=== PATIENT | male | born 1965 | race Caucasian/White ===

== ENCOUNTER 2018-01-22 09:15 | Observation (INO) | payer BC ==
[2018-01-22 09:51] LABS: ABS Basophils 0.1 10^3/ul (0-0.2); ABS Eosinophils 0.2 10^3/ul (0-0.6); ABS Lymphocytes 3.4 10^3/ul (1.0-4.8); ABS Monocytes 1.1 10^3/ul (0-0.8); ABS Neutrophils 8.5 10^3/ul (1.5-7.7); ABS Nucleated RBC 0 10^3/ul; Eosinophil % 1.4 % (0-6); Hematocrit 51 % (42-52); Hemoglobin 17.7 g/dl (14.0-18.0); Lymphocyte % 25.6 % (25-47); Mean Corpuscular HGB Conc 35 g/dl (31-36); Mean Corpuscular Hemoglobin 32 pg (27-31); Mean Corpuscular Volume 93 fL (80-94); Mean Platelet Volume 7.8 um3 (7.4-10.4); Nucleated Red Blood Cells % 0.1; Platelet Count 279 10^3/ul (150-450); Red Blood Count 5.47 10^6/ul (4.0-5.4); Red Cell Distribution Width 13 % (10.5-15); White Blood Count 13.3 10^3/ul (3.5-10.8)
--- NOTE | 2018-01-22 09:59 | RAD ---
HISTORY: Chest pain COMPARISONS: February 07, 2015 VIEWS: 1: frontal portable view of the chest at 9:45 AM. The left costophrenic angle is cut off. FINDINGS: LINES AND TUBES: None. CARDIOMEDIASTINAL SILHOUETTE: The cardiomediastinal silhouette is normal for portable technique. PLEURA: The left costophrenic angle is cut off. The right costophrenic angle is sharp. LUNG PARENCHYMA: The lungs are clear. ABDOMEN: The upper abdomen is clear. There is no subphrenic gas. BONES AND SOFT TISSUES: No bone or soft tissue abnormalities are noted. IMPRESSION: LIMITED STUDY. NO ACTIVE CARDIOPULMONARY DISEASE.
[2018-01-22] MEDS ORDERED: Aspirin 81 mg CHEW TAB* 81 MG TAB.CHEW PO ONE (10:01)
[2018-01-22 10:09] LABS: EGFR Non-African American 73.2 (>60)
[2018-01-22] MEDS ORDERED: LORazepam TAB(*) 1 MG PO SCH (12:00)
[2018-01-22] MEDS ORDERED: Omeprazole CAP* 20 MG PO PRN (12:23)
[2018-01-22] MEDS ORDERED: Mouth Piece, Nicotine* 1 EACH CARTRIDGE INH PRN (12:24)
[2018-01-22] MEDS ORDERED: Nicotine Inhaler* 10 MG AMP INH PRN (12:24)
[2018-01-22] MEDS ORDERED: Heparin VIAL(*) 5000 UNITS/ML VIAL (FIVE THOUSAND) SUBCUT SCH (14:00)
[2018-01-22] MEDS ORDERED: Atorvastatin* 20 MG TAB PO SCH (17:00)
--- NOTE | 2018-01-22 18:57 | ED ---
Yunior Avelar Jennifer scribed for Meek Hunter MD on 01/22/18 at 0949 . HPI Chest Pain - HPI Summary HPI Summary: The patient is a 52 year old male who presents with severe heart burn and chest pain since 0130 this morning. He states that the pain was located mid-sternal but denies radiation. The patient broke out in a cold sweat after the sudden onset chest pain and has been nauseous since. The patient denies taking Aspirin but took his Lisinopril this morning. He reports the chest discomfort lasted about 10 minutes and he feels much better in the ED now. - History of Current Complaint Chief Complaint: EDChestPainROMI Time Seen by Provider: 01/22/18 09:31 Hx Obtained From: Patient Onset/Duration: Started Hours Ago, Resolved - Better Timing: Lasting Minutes - 10 minutes Initial Severity: Moderate Current Severity: Mild Pain Intensity: 1 Pain Scale Used: 0-10 Numeric Chest Pain Location: Mid Sternal Chest Pain Radiates: No Character: Burning, Pressure/Squeezing Aggravating Factor(s): Nothing Alleviating Factor(s): Nothing Associated Signs and Symptoms: Positive: Other: - chest pain, nausea - Allergy/Home Medications Allergies/Adverse Reactions: Allergies Allergy/AdvReac Type Severity Reaction Status Date / Time No Known Allergies Allergy Verified 01/22/18 09:17 Home Medications: Home Medications Atorvastatin* [Lipitor*] 20 mg PO DAILY 01/22/18 [History Confirmed 01/22/18] Hydrochlorothiazide TAB* [Hydrodiuril TAB*] 25 mg PO DAILY 01/22/18 [History Confirmed 01/22/18] Lisinopril TAB* [Prinivil TAB*] 40 mg PO DAILY 01/22/18 [History Confirmed 01/22] PMH/Surg Hx/FS Hx/Imm Hx Endocrine/Hematology History: Denies: Hx Diabetes Cardiovascular History: Reports: Hx Hypertension Psychiatric History: Reports: Hx Anxiety Infectious Disease History: No Infectious Disease History: Denies: Traveled Outside the [place] in Last 30 Days - Family History Known Family History: Positive: Hypertension Negative: Cardiac Disease - Social History Alcohol Use: Daily Substance Use Type: Reports: None Smoking Status (MU): Heavy Every Day Tobacco Smoker Review of Systems Negative: Fever, Chills Negative: Erythema Negative: Sore Throat Positive: Chest Pain Negative: Shortness Of Breath, Cough Positive: Nausea. Negative: Abdominal Pain, Vomiting Negative: dysuria, flank pain Negative: Myalgia, Edema Negative: Rash Neurological: Negative - Dizziness All Other Systems Reviewed And Are Negative: Yes Physical Exam - Summary Physical Exam Summary: Constitutional: Well-developed, Well-nourished, Alert. (-) Distressed Skin: Warm, Dry HENT: Normocephalic; Atraumatic Eyes: Conjunctiva normal Neck: Musculoskeletal ROM normal neck. (-) JVD, (-) Stridor, (-) Tracheal deviation Cardio: Rhythm regular, rate normal, Heart sounds normal; Intact distal pulses; The pedal pulses are 2+ and symmetric. Radial pulses are 2+ and symmetric. (-) Murmur Pulmonary/Chest wall: Effort normal. (-) Respiratory distress, (-) Wheezes, (-) Rales Abd: Soft, (-) Tenderness, (-) Distension, (-) Guarding, (-) Rebound Musculoskeletal: (-) Edema Lymph: (-) Cervical adenopathy Neuro: Alert, Oriented x3 Psych: Mood and affect Normal Triage Information Reviewed: Yes Vital Signs On Initial Exam: Initial Vitals Temp Pulse Resp BP Pulse Ox 98.1 F 105 16 145/101 97 01/22/18 09:18 01/22/18 09:18 01/22/18 09:18 01/22/18 09:18 01/22/18 09:18 Vital Signs Reviewed: Yes Diagnostics - Vital Signs Vital Signs Temp Pulse Resp BP Pulse Ox 01/22/18 09:45 97 01/22/18 09:30 99 19 97 01/22/18 09:18 98.1 F 105 16 145/101 97 - Laboratory Result Diagrams: 01/22/18 09:42 01/22/18 09:43 Lab Statement: Any lab studies that have been ordered have been reviewed, and results considered in the medical decision making process. - Radiology CXR Xray Interpretation: No Acute Changes - LIMITED STUDY. NO ACTIVE CARDIOPULMONARY DISEASE. Dr. Hunter has reviewed this report. Radiology Interpretation Completed By: Radiologist - EKG 0930 Cardiac Rate: NL EKG Rhythm: Sinus Rhythm - 92 BPM EKG Interpretation: no STEMI Chest Pain Course/Dx - Course Course Of Treatment: The patient is a 52 year old male who presents with severe heart burn, chest pain, and sweats since 0130 this morning. The patient is a smoker and has history of hypertension. In the ED course the patient was given 324mg Aspirin. Bloodwork obtained. CXR, EKG obtained. The patient is diagnosed with unspecified chest pain and hypertension. The patient was admitted to [facility] by Dr. Hernandez. - Diagnoses Provider Diagnoses: Nonspecific chest pain, Hypertension - Provider Notifications Discussed Care Of Patient With: Iam Hernandez Time Discussed With Above Provider: 11:10 Instructed by Provider To: Admit As Inpatient Discharge - Sign-Out/Discharge Documenting (check all that apply): Discharge/Admit/Transfer - Discharge Plan Condition: Good Disposition: ADMITTED TO [facility] Referrals: Nickolas Warner MD [Primary Care Provider] - The documentation as recorded by the Yunior conrad Jennifer accurately reflects the service I personally performed and the decisions made by , Meek Hunter MD.
[2018-01-22 19:23] VITALS: BP 155/95
--- NOTE | 2018-01-22 21:02 | HP ---
CC: Nickolas Warner MD * HISTORY AND PHYSICAL: DATE OF ADMISSION: 01/22/18 PRIMARY CARE PROVIDER: Nickolas Warner MD ATTENDING PHYSICIAN: Iam Hernandez MD * (dictated by Ema Ruelas NP) CHIEF COMPLAINT: Chest pain. HISTORY OF PRESENT ILLNESS: Mr. Gann is a 52-year-old male with a past medical history significant for hypertension, hyperlipidemia, and alcohol abuse who states he had been in his usual state of health when, at approximately 1:30 this morning, he developed a sternal chest discomfort that lasted for 10 minutes. He took a Nexium as he thought that it was secondary to indigestion. He states after the chest discomfort, he had 20 minutes of dizziness and sweating. He states that he had hot dogs and six 16-ounce beers last evening, so he contributed his symptoms to what he had late for dinner last night. The patient denies any recent fevers, chills, cough, shortness of breath, nausea, vomiting, diarrhea, urinary symptoms. The patient states he urinates a lot due to being on hydrochlorothiazide. He states that he recently saw his primary care provider this week who increased his antihypertensives and started him on atorvastatin after receiving labs showing he had hyperlipidemia. Due to the patient's symptoms, he presented to the emergency room for further evaluation of his symptoms. While in the emergency room, the patient received aspirin. He had initial troponin of 0.01. He remained chest pain free. The D-dimer was less than 200. His other labs were fairly unremarkable with the exception of a mildly elevated white blood cell count at 13.3. The patient states that he has had some recent sinus symptoms and left ear discomfort that are improving and his primary care provider evaluated him 3 days ago and felt that he did not need any antibiotics. The hospitalists were asked to evaluate the patient for admission. PAST MEDICAL HISTORY: 1. Hypertension. 2. Hyperlipidemia. 3. Alcohol abuse and tobacco abuse. PAST SURGICAL HISTORY: Status post tonsillectomy and adenoidectomy. HOME MEDICATIONS: Include: 1. Lisinopril 40 mg oral daily. 2. Hydrochlorothiazide 25 mg oral daily. 3. Atorvastatin 20 mg oral daily. 4. Nexium 20 mg oral daily as needed for indigestion. ALLERGIES: No known drug allergies. FAMILY HISTORY: The patient has a half brother with a history of MT. His mother has a history of diabetes mellitus. He had a maternal grandmother with a history of uterine cancer and his father with a history of lung cancer. SOCIAL HISTORY: This patient smokes 0.5 to 1 pack per day. He has a 26-year smoking history. The patient drinks 3 to 8 16-ounce beers daily. Prior to last night, he had gone 6 days without drinking. He denies recreational drugs. His significant other, Gloria Leblanc, will be his surrogate decision maker in the event he is unable to make decisions for himself. REVIEW OF SYSTEMS: I performed an 11-point review of systems. All the pertinent positives and negatives are mentioned in the history of present illness. The remaining review of systems is negative. PHYSICAL EXAMINATION GENERAL APPEARANCE: The patient is alert, pleasant, appears to be in no acute distress. VITAL SIGNS: Temperature 98.1, heart rate 99, respiratory rate 19, O2 sat 97% on room air, blood pressure 145/101. HEENT: Normocephalic, atraumatic. Pupils are equal and reactive to light. Extraocular movements are intact. RESPIRATORY: There is no accessory muscle use. The lungs are clear to auscultation, bilateral. ABDOMEN: Soft, nontender, nondistended. There are bowel sounds present x4. EXTREMITIES: There is no lower extremity edema. DP and PT pulses are 2+ and symmetric. MUSCULOSKELETAL: There is no clubbing or cyanosis noted. The patient exhibits good strength in all extremities. NEUROLOGICAL: The patient is alert and oriented x4. Cranial nerves II through XII are grossly intact. PSYCHOLOGICAL: The patient is calm and cooperative. SKIN: There are no rashes or abnormalities seen. DIAGNOSTIC STUDIES/LABORATORY DATA: Sodium 136, potassium 4.5, chloride 102, CO2 of 26, BUN 15, creatinine 1.07, glucose 151. White blood cell count 13.3, hemoglobin 17.7, hematocrit 51, platelet count 279,000. D-dimer is less than 200. Troponin 0.01. EKG shows a sinus rhythm, rate of 92 and right bundle-branch block. This EKG is similar to previous EKG from 02/07/15. At that time, it was an incomplete right bundle-branch block. He has no acute signs of ischemia at this time. Chest x-ray from today. Radiologist's impression: Limited study. No active cardiopulmonary disease. IMPRESSION: Mr. Gann is a 52-year-old male with past medical history significant for hypertension, hyperlipidemia, and tobacco and alcohol abuse who presents to the emergency room with complaints of chest pain overnight that has since resolved. He will be admitted as an observation for rule out acute coronary syndrome. ASSESSMENT/PLAN: 1. Chest pain. The patient will be admitted to rule out acute coronary syndrome. We will trend his troponins. He will get 2 more troponins every 3 hours. He is unable to get a stress test today as he will not have his repeat troponin within 4 to 6 hours. The plan will be if his troponins rule out that he will have an outpatient stress test early next week. The patient will need to have a nuclear stress test due to his risk factors. He has a HEBERT score of 1. On 01/19/18, he had fasting lipids showing a cholesterol of 226 and LDL of 154. At that time, he was started on atorvastatin by his primary care provider. 2. Leukocytosis. The patient had mild leukocytosis on 01/19/18, slightly elevated now. Suspect this could be secondary to a sinusitis. I do not feel he needs antibiotics at this time. Continue supportive care. 3. Hypertension. The patient was initially hypertensive in the emergency room. This is improved during his stay. He is now normotensive. He reports recently having his lisinopril dosing increased. 4. Hyperlipidemia. The patient had fasting lipids as discussed above 3 days ago, so he will be continued on his atorvastatin. 5. Tobacco abuse. The patient will be provided with nicotine replacement as needed. 6. Alcohol abuse. The patient will be placed on a WAM protocol. He has no signs of alcohol withdrawal at this time. 7. Fluids, electrolytes, and nutrition. The patient will be on a heart healthy diet. 8. Code status. Full code. 9. DVT prophylaxis. The patient is at moderate risk and will have subcu heparin. 10. Disposition. Observation. TIME SPENT: Time for this admission was approximately 60 minutes, greater than half of that was spent with the patient and his significant other discussing medications, past medical history, the events leading up to his arrival today, performing a physical examination, and discussing the plan of care. This case has been reviewed with the attending, Dr. Hernandez, who agrees with the plan of care. Reviewed by TORITO ROJAS-C 01/23/18 1430 [id number]/[facility] #: [id number] REBEKAH
--- NOTE | 2018-01-23 06:50 | DS ---
CC: Dr. Nickolas Warner * DISCHARGE SUMMARY: DATE OF ADMISSION: 01/22/18 DATE OF DISCHARGE: 01/22/18 ATTENDING PHYSICIAN: Dr. Iam Hernandez * (dictated by Ema Ruelas NP) . PRIMARY DIAGNOSIS: Chest pain, suspect secondary to indigestion. SECONDARY DIAGNOSES: 1. Hypertension. 2. Hyperlipidemia. 3. Tobacco abuse. 4. Alcohol abuse. STUDIES WHILE IN THE HOSPITAL: 1. Chest x-ray from today. Radiologist's impression: Limited study. No active cardiopulmonary disease. DISCHARGE MEDICATIONS: New home medications: 1. Folic acid 1 tablet oral daily. 2. Multivitamin 1 tablet oral daily. 3. Thiamine 100 mg oral daily. Continued home medications: 1. Lisinopril 40 mg oral daily. 2. Hydrochlorothiazide 25 mg oral daily. 3. Atorvastatin 20 mg oral daily. 4. Nexium 20 mg oral daily as needed for indigestion. HISTORY OF PRESENT ILLNESS/HOSPITAL COURSE: Mr. Gann is a 52-year-old male with a past medical history significant for hypertension, hyperlipidemia, tobacco, and alcohol abuse, who has been in his usual state of health when approximately at 1:30 this morning, he developed sternal chest discomfort that lasted for 10 minutes. He took a Nexium as he thought the pain was secondary to his indigestion. Afterwards, the pain resolved, but he continued to have dizziness and sweating for approximately 20 minutes. He reports having hot dogs and 6 sixteen-ounce beers last evening prior to going to bed and feels this was contributing to his indigestion. He denied any fevers, chills, shortness of breath, nausea, vomiting, diarrhea, or urinary symptoms. He reports recently being started on atorvastatin for hyperlipidemia by his PCP. Due to his symptoms, he presented to the emergency room. While in the emergency room, he received an aspirin, had an initial troponin of 0.01. He remained chest pain free. He had a D-dimer of less than 200. He had a mild leukocytosis of 13.1, suspected to be secondary to possible sinusitis, so he did not need any antibiotics at that time. Hospitalists were asked to evaluate the patient for admission. While in the hospital, the patient remained chest pain free. He had his troponins trended, that were 0.01 and 0.00. He was monitored on telemetry with no findings. Mr. Gann is stable for discharge to home today. Vital signs are as follows: Temperature 98.6, heart rate 95, respiratory rate 16, O2 sat 99%, blood pressure 155/96. DISCHARGE PLAN: Mr. Gann will be discharged to home. ACTIVITY: As tolerated. DIET: He should be on a heart-healthy diet. As far as his chest pain, I suspect his chest pain overnight was secondary to indigestion, but he has risk factors of hypertension, tobacco abuse, hyperlipidemia for CAD. I feel that the patient should undergo an outpatient stress test next week. [facility] will call the patient and set him up for an outpatient stress test next week. The patient has been resumed on his usual home medications. I recommended that he take thiamine, folic acid, and multivitamin due to his alcohol abuse. He has been encouraged to stop smoking and drinking alcohol. He has been asked to return to the emergency room for any chest pain, shortness of breath. He has a followup appointment with Dr. Warner, his primary care provider, on 01/29/18, at 10:20 a.m. This is a summarized report of a complex medical history and hospital stay. For further details, please see the entire medical record. TIME SPENT: Time for this discharge was approximately 50 minutes, greater than half of that was spent with the patient and significant other discussing medications and discharge plans and instructions. CONDITION ON DISCHARGE: Stable. Reviewed by DUKE ROJAS 01/23/18 1432 [id number]/[facility] #: [id number] REBEKAH
[2018-01-23] MEDS ORDERED: Folic Acid TAB* 1 MG PO SCH (09:00)
[2018-01-23] MEDS ORDERED: Multivitamins/Minerals TAB PO SCH (09:00)
[2018-01-23] MEDS ORDERED: Thiamine TAB* 100 MG TAB PO SCH (09:00)
[2018-01-23] MEDS ORDERED: Lisinopril TAB* 10 MG PO SCH (09:00)
[2018-01-23] MEDS ORDERED: Hydrochlorothiazide TAB* 25 MG PO SCH (09:00)
== END 2018-01-22 19:45 | disposition home or self-care (01) ==
LOC: ED 09:15 → MEDTELE 11:25
PROVIDERS: ADMIT Internal Medicine; ATTEND Internal Medicine
DX: R07.9 Chest pain, unspecified (principal); I10 Essential (primary) hypertension; E78.5 Hyperlipidemia, unspecified; F17.210 Nicotine dependence, cigarettes, uncomplicated; F10.10 Alcohol abuse, uncomplicated; R42 Dizziness and giddiness; D72.829 Elevated white blood cell count, unspecified
CPT/HCPCS: 36415; 71045; 80053; 83605; 84484; 85025; 85379; 93005; 96372; 99283; A9270-GY; G0378